=== PATIENT | male | born 1975 | race Caucasian/White ===

== ENCOUNTER 2019-10-03 12:02 | Emergency (ER) | payer OTHER, SELFPAY ==
--- NOTE | ~2019-10-03 | CT_ITS ---
EXAMINATION: CT elbow LT wo con DATE: 10/03/2019 13:54 INDICATION: Left radial head fracture post fall TECHNIQUE: High resolution computed tomography (CT) of the left elbow was performed without intraveno us contrast. Additional sagittal and coronal reconstructions were performed. Rotating surface rendere d 3-D images were created to better delineate fracture morphology for subsequent surgical planning. T he dose-length product was 321.44 mGy-cm. COMPARISON: Radiographs dated 10/03/2019 FINDINGS: Again seen is a comminuted intra-articular fracture of the left radial head. There are 2 fragments to gether comprising approximately one third of the articular surface area situated anteriorly along the side of the radial head opposite to the radial tuberosity which are only minimally displaced with mi ld anterior angulation. There are 2 larger fragments together comprising approximately two thirds of the posterior articular surface area which are more significantly displaced and angulated. The ulnar sided fragment is rotated in situ approximately 90 degrees posteriorly. The posterior radial fragment is displaced posteriorly and radially and is also rotated posteriorly and radially approximately 90 degrees in each plane, situated along the posterior radial nonarticular surface of the capitellum. No fracture of the visualized distal humerus or proximal ulna with severe normal alignment at the ulnot rochlear articulation. Moderate-sized left elbow joint effusion with small focus of vacuum phenomena. IMPRESSION: 1. Comminuted intra-articular fracture of the left radial head with significant displacement and angu lation of a couple fragments together comprising approximately two thirds of the articular surface ar ea. Reviewed, dictated and finalized at location A. RMATICS PHYSICIAN IMPRESSION: 1. Comminuted intra-articular fracture of the left radial head with significant displacement and angulation of a couple fragments together comprising approxim ately two thirds of the articular surface area.
--- NOTE | ~2019-10-03 | XR_ITS ---
EXAMINATION: XR elbow LT min 3V DATE: 10/03/2019 12:39 INDICATION: Left elbow pain and limited range of motion post fall outstretched arm TECHNIQUE: Anteroposterior, two oblique and lateral views of the left elbow were obtained. COMPARISON: None. FINDINGS: Comminuted intra-articular fracture of the left radial head. On the lateral projection the fragment c ompressing a significant portion of the articular surface of the radial head is rotated approximately 45 degrees posteriorly there appears to be impaction of the articular surface containing fragments a t the ulnar side of the radial head with proximal migration of the radial diaphysis. No other fractur es identified. Normal alignment at the ulnotrochlear articulation. Left elbow joint effusion is prese nt. IMPRESSION: 1. Comminuted intra-articular fracture of the proximal left radius with rotation of the fragment comp rising a significant portion of the proximal articular surface. Consider CT for more definitive asses sment of the fracture alignment. Reviewed, dictated and finalized at location A. DLE PLUMBER IMPRESSION: 1. Comminuted intra-articular fracture of the proximal left radius with rotatio n of the fragment comprising a significant portion of the proximal articular hatfield rface. Consider CT for more definitive assessment of the fracture alignment.
[2019-10-03 12:08] VITALS: BP 131/83; PULSE 70; RESP 16; TEMP 36.1; O2SAT 99
[2019-10-03 13:45] VITALS: TEMP 36.1
--- NOTE | 2019-10-03 14:54 | ED.GENADULT ---
HPI - General Adult General Chief complaint: Fall Stated complaint: left elbow injury from fall Time Seen by Provider: 10/03/19 12:12 Source: patient Mode of arrival: ambulatory Limitations: no limitations History of Present Illness HPI narrative: Patient is a 44-year-old male who presents to emergency department for evaluation of left elbow injury that occurred just prior to arrival patient was jumping over the hose at the gas station when he landed on the left elbow since has had moderate aching pain throughout the joint with decreased range of motion and strength denies other injuries or complaints presents per private vehicle has not had anything for his symptoms Related Data Home Medications Medication Instructions Recorded Confirmed lamotrigine 25 mg tablet 75 mg PO DAILY 07/30/19 krill oil 10/03/19 lisinopril 10/03/19 loratadine-pseudoephedrine tablet PO 10/03/19 [Claritin-D 24 Hour] Allergies Allergy/AdvReac Type Severity Reaction Status Date / Time No Known Allergies Allergy Mild Verified 10/03/19 12:25 Review of Systems Review of Systems: Narrative: CONSTITUTIONAL: Denies fever, chills, or sweats. SKIN: Positive for swelling MUSCULOSKELETAL: Positive for left elbow pain NEUROLOGIC: Denies numbness or tingling PMFSH Past Medical History Medical History Anxiety Arm fracture (~1999) Current mild episode of major depressive disorder without prior episode Dehydration (~1990) Essential hypertension Gout Sleep apnea Social History Social History Smoking status: Never smoker Second hand tobacco smoke exposure: No Alcohol intake: never Exam Narrative: Exam Narrative: GENERAL: Well-appearing, well-nourished, and in no acute distress. HEAD: Normocephalic, atraumatic. EYES: PERRLA and EOMI. ENT: Nares clear, no rhinorrhea or epistaxis. Mucous membranes moist. EXTREMITIES: Tenderness throughout the left elbow with slight swelling SKIN: Warm, dry, no rash. NEURO: No focal deficits. Alert and oriented x3. Neurovascularly intact. Capillary refill less than 2 seconds PSYCH: Normal mood and affect. Course Course Emergency Course: Patient in the room aware of case findings treatment plan and diagnosis agreeing to follow-up as directed Consultations Consultation #1: Discussed case with Dr. Duarte orthopedic surgery who recommended having the patient set up in [place] for orthopedic eval Discussed with [facility], patient was given contact for orthopedic clinic Date: 10/03/19 Vital Signs Vital signs: Vital Signs Temperature 96.9 F L 10/03/19 12:08 Pulse Rate 70 10/03/19 12:08 Respiratory Rate 16 10/03/19 12:08 Blood Pressure 131/83 10/03/19 12:08 Pulse Oximetry 99 10/03/19 12:08 Temperature 96.9 F L 10/03/19 13:45 Pulse Rate 70 10/03/19 12:08 Respiratory Rate 16 10/03/19 12:08 Blood Pressure 131/83 10/03/19 12:08 Pulse Oximetry 99 10/03/19 12:08 Medical Decision Making MDM Narrative Medical decision making narrative: Patients injury or pain is consistent with musculoskeletal etiology. No signs of neurological or vascular compromise on exam. Compartments and tisues are soft without signs of compartment syndrome. Pain is felt appropriate for further evaluation on an outpatient basis. Patient aware of discussion with orthopedic surgery and given instructions on follow-up with [facility] orthopedic surgery Vital Signs Vital Signs: Vital Signs Temperature 96.9 F L 10/03/19 12:08 Pulse Rate 70 10/03/19 12:08 Respiratory Rate 16 10/03/19 12:08 Blood Pressure 131/83 10/03/19 12:08 Pulse Oximetry 99 10/03/19 12:08 Temperature 96.9 F L 10/03/19 13:45 Pulse Rate 70 10/03/19 12:08 Respiratory Rate 16 10/03/19 12:08 Blood Pressure 131/83 10/03/19 12:08 Pulse Oximetry 99 10/03/19 12:08 Dischar
== END 2019-10-03 15:34 | disposition home or self-care (01) ==
PROVIDERS: Emergency Provider Emergency Medicine; PCP Family Medicine
DX: S52.122A Displaced fracture of head of left radius, initial encounter for closed fracture (principal); I10 Essential (primary) hypertension; G47.30 Sleep apnea, unspecified; W01.0XXA Fall on same level from slipping, tripping and stumbling without subsequent striking against object, initial encounter
CPT/HCPCS: 29105; 73080; 73200; 99284; A4565; A9270